=== PATIENT | female | born 1970 | race Caucasian/White ===

== ENCOUNTER 2018-02-12 10:36 | Emergency (ER) | payer BC ==
[2018-02-12 11:00] VITALS: BP 125/75
--- NOTE | 2018-02-12 11:26 | UC ---
UC General HPI - HPI Summary HPI Summary: Patient presents complaining of swelling between the fourth and fifth fingers of her right hand - she's gesturing to the dorsal surface. She notes that it is making her right pinky feel numb. She denies any history of injury and notes the discomfort is worsening. She is also complaining of pain around the base of her left thumb for about 3 months again no injury. She denies any fever or chills she denies any other joint pains and offers no other complaints. se did have carpal tunnel surgery on her right wrist but this is different. she has taken occasional motrin as needed for discomfort. tried an otc thumb spica L thumb with no relief. pcp won't tx because she thinks it may be comp related. - History of Current Complaint Hx Obtained From: Patient Hx Last Menstrual Period: 2011 Onset/Duration: Gradual Onset Pain Intensity: 8 Alleviating: nothing Associated Signs & Symptoms: Negative: Fever <Kristen Blackburn - Last Filed: 02/12/18 12:12> <Princess Todd - Last Filed: 02/12/18 12:16> - History of Current Complaint Chief Complaint: UCUpperExtremity Stated Complaint: BI LAT HAND SWELLING Time Seen by Provider: 02/12/18 11:17 - Allergy/Home Medications Allergies/Adverse Reactions: Allergies Allergy/AdvReac Type Severity Reaction Status Date / Time bee venom protein (honey bee) Allergy Severe Anaphylatic Verified 02/12/18 10:52 Shock cefazolin [From Kefzol] Allergy Unknown Hives Verified 02/12/18 10:52 Penicillins Allergy Unknown Unknown Verified 02/12/18 10:52 Reaction Details PMH/Surg Hx/FS Hx/Imm Hx GI/ History: Gastroesophageal Reflux - Surgical History Surgical History: Yes Surgery Procedure, Year, and Place: TUBAL LIGATION BEFORE -Hysterectomy, 2011, [facility]. Right Carpal Tunnel Release, 1997,. [facility] Bilateral Epicondilitis Surgeries. CHOLECYSTECTOMY - Family History Known Family History: Positive: Cardiac Disease, Diabetes, Other - parkinsons , [place] - Social History Occupation: Employed Full-time Lives: With Family Alcohol Use: Occasionally Substance Use Type: None Smoking Status (MU): Former Smoker Type: Cigarettes Amount Used/How Often: 1 PPD Length of Time of Smoking/Using Tobacco: 12 Years Have You Smoked in the Last Year: No When Did the Patient Quit Smoking/Using Tobacco: 2012 Household Exposure Type: Cigarettes - Immunization History Most Recent Influenza Vaccination: Not the Season Vaccination Up to Date: Yes <Kristen Blackburn - Last Filed: 02/12/18 12:12> Review of Systems Constitutional: Negative Skin: Negative Eyes: Negative ENT: Negative Respiratory: Negative Cardiovascular: Negative Gastrointestinal: Negative Genitourinary: Negative Motor: Negative Neurovascular: Negative Musculoskeletal: Arthralgia - hands Neurological: Negative Psychological: Negative Is Patient Immunocompromised?: No All Other Systems Reviewed And Are Negative: Yes <Kristen lBackburn - Last Filed: 02/12/18 12:12> Physical Exam Triage Information Reviewed: Yes Appearance: Well-Appearing Vital Signs: Initial Vital Signs Temp 98.8 F 02/12/18 10:53 Pulse 76 02/12/18 10:53 Resp 16 02/12/18 10:53 BP 125/75 02/12/18 10:53 Pulse Ox 99 02/12/18 10:53 Vital Signs Reviewed: Yes Eyes: Positive: Conjunctiva Clear ENT: Positive: Normal ENT inspection Neck: Positive: Supple, Nontender, No Lymphadenopathy Respiratory: Positive: Lungs clear, Normal breath sounds Cardiovascular: Positive: RRR, No Murmur Abdomen Description: Positive: Nontender, No Organomegaly, Soft Bowel Sounds: Positive: Present Musculoskeletal: Positive: Other: - Right hand exam: There is mild swelling to the base of the fourth metacarpal extending in between to the fifth metacarpal. There is no erythema or warmth. Patient notes the area is tender. The rest of the hand is unremarkable and has full sensorivascular motor function. Left hand exam: Comparison to the right hand there appears to be mild swelling at the junction of the base of the thumb and first metacarpal/thenar areas volar surface only patient notes the area is mildly tender but there is no erythema or warmth in the hand has full sensorivascular motor function. The rest of both upper extremities are unremarkable. Generalized joint exam shows no additional swelling, erythema and range of motion is intact. Neurological: Positive: Alert Psychological: Positive: Age Appropriate Behavior Skin Exam: Normal <BereKristen - Last Filed: 02/12/18 12:12> Vital Signs: Initial Vital Signs Temp 98.8 F 02/12/18 10:53 Pulse 76 02/12/18 10:53 Resp 16 02/12/18 10:53 BP 125/75 02/12/18 10:53 Pulse Ox 99 02/12/18 10:53 <Princess Todd - Last Filed: 02/12/18 12:16> Diagnostics - Radiology No standard instances Radiology Interpretation Completed By: Radiologist - Hands=mild OA(see report) <Kristen Blackburn - Last Filed: 02/12/18 12:12> Course/Dx - Differential Dx - Multi-Symptom Provider Diagnoses: arthralgia base L thumb and 4th/5th finger R hand <Kristen Blackburn - Last Filed: 02/12/18 12:12> Discharge - Sign-Out/Discharge Documenting (check all that apply): Discharge/Admit/Transfer - Billing Disposition and Condition Condition: STABLE Disposition: Home <Kristen Blackburn - Last Filed: 02/12/18 12:12> - Billing Disposition and Condition Condition: STABLE Disposition: Home <Princess Todd - Last Filed: 02/12/18 12:16> - Discharge Plan Condition: Stable Disposition: HOME Prescriptions: Naproxen [Naprosyn 500 mg tab] 500 mg PO BID #10 tablet Patient Education Materials: Osteoarthritis (ED) Referrals: Alyson Serna [Primary Care Provider] - If Needed Janene Cortez MD [Medical Doctor] - 5 Days Attestation Statement User Type: Provider - I was available for consult. This patient was seen by the GABBY. The patient was not presented to, seen by, or examined by me. -Ljj <Princess Todd - Last Filed: 02/12/18 12:16>
--- NOTE | 2018-02-12 12:05 | RAD ---
INDICATION: Chronic, bilateral hand pain COMPARISON: None TECHNIQUE: AP, lateral, and oblique views of each hand were obtained. FINDINGS: The bony structures are normally mineralized. There is no acute bony change. There is minor, symmetric, interphalangeal narrowing bilaterally. There is minor osteoarthritic change about the first carpal metacarpal reticulation on the left. No additional findings. IMPRESSION: MINOR OSTEOARTHRITIC CHANGE
== END 2018-02-12 12:20 | disposition home or self-care (01) ==
LOC: UCCORT 10:36
DX: M25.541 Pain in joints of right hand (principal); M25.542 Pain in joints of left hand; Z88.1 Allergy status to other antibiotic agents; Z88.0 Allergy status to penicillin; Z87.891 Personal history of nicotine dependence
CPT/HCPCS: 99212; G0463

== ENCOUNTER 2018-07-26 06:21 | Day surgery (SDC) | payer BC ==
[~2018-07-26 06:21] MED LIST: Buffered Lidocaine 0.9% SYRIN* 5 ML/SYR SYRINGE INTRADERM ONE; Clindamycin 900 MG/D5W BAG(*) 900 MG/50 ML BAG IVPB ONE; Lactated Ringers 1000 ML Bag* 1,000 ML IV SCH
[2018-07-26] MEDS ORDERED: Bupivacaine 0.25% SDV PF* 10 ML VIAL INJ ONE (08:11)
[2018-07-26] MEDS ORDERED: fentaNYL* 50 MCG/ML 2 ML VIAL (100 MCG VIAL) ONE ×3 (08:32→11:19)
[2018-07-26] MEDS ORDERED: Propofol* 10 MG/ML 20 ML BTL ONE (08:33)
[2018-07-26] MEDS ORDERED: Lidocaine 2% PF * 5 ML VIAL ONE (08:33)
[2018-07-26] MEDS ORDERED: Naloxone* 0.4 MG/ML 1 ML VIAL IV PRN (09:06)
[2018-07-26] MEDS ORDERED: Ketorolac INJ* 30 MG/ML 1 ML VIAL IV PRN (09:06)
[2018-07-26] MEDS ORDERED: Ondansetron INJ* 2 MG/ML VIAL IV PRN (09:06)
[2018-07-26] MEDS ORDERED: Ketorolac INJ* 30 MG/ML 1 ML VIAL ONE (10:26)
[2018-07-26] MEDS: fentaNYL* 50 MCG/ML 2 ML VIAL (100 MCG VIAL) IV PRN ×5 (10:28→11:20)
[2018-07-26] MEDS ORDERED: HYDROcodone/ACETAMIN 5-325 MG* 1 TAB ONE ×2 (10:53→10:54)
[2018-07-26 13:33] VITALS: BP 143/92
--- NOTE | 2018-07-26 23:05 | OP ---
DATE OF OPERATION: 07/26/18 - [facility] DATE OF : 66 SURGEON: Jeancarlos Hoffman MD [employer] ARCHITECT: URSULA Pineda. An assistant casino shift manager was needed for the procedure to aid in positioning of the arm and retraction. ANESTHESIOLOGIST: Dr. Villalpando. ANESTHESIA: General. PRE-OP DIAGNOSIS: Left thumb carpometacarpal degenerative joint disease. POST-OP DIAGNOSIS: Left thumb carpometacarpal degenerative joint disease. OPERATIVE PROCEDURE: 1. Left thumb carpometacarpal arthroplasty. 2. Distally based split flexor carpi radialis tendon transfer for thumb suspension and tendon interposition. INDICATIONS: Magali has very symptomatic carpometacarpal DJD. We had talked about risks and benefits, she wanted to proceed with surgery. ESTIMATED BLOOD LOSS: 2 mL. COMPLICATIONS: None. FINDINGS: See above and elbow. DESCRIPTION OF PROCEDURE: Magali was seen in the preoperative holding area. The correct side, site and procedure were identified. We came back to the operating room. The arm was prepped and draped in the usual fashion and time- out was performed. The arm was exsanguinated with the Esmarch and the tourniquet was inflated to 250 mmHg. I began by making a 2 to 3 cm longitudinal incision over the dorsal radial thumb base. Dissection was carried down longitudinally to preserve the traversing sensory nerves. The radial artery was mobilized and retracted out of the way. A small acute dialysis nurse was cauterized. Subperiosteal and capsular flaps were raised using the knife to expose the dorsal surface of the trapezium including the scaphoid trapezoid, the carpometacarpal and the trapezial trapezoid joint. The rongeur was then used to excise the trapezium in piecemeal fashion completely. Once it was completely excised, the scaphoid trapezoid joint was examined, this looked good. I then used sequentially larger drill bits to create a bone tunnel from the dorsal radial aspect of the thumb metacarpal base, actually not the volar ulnar articular surface. Everything was irrigated out. We turned our attention to the tendon transfer. I made a 1-cm incision just proximal to the wrist flexion crease. The FCR tendon sheath was released. The tendon was brought out of the wound and split longitudinally with a 15 blade and a 26-gauge wire was passed between the split. I then came about 8 cm proximal to that and made a second 1 to 2 cm transverse incision. The FCR tendon sheath was released under the skin along the entirety of the tendon. A Daphne clamp was then passed from the proximal wound into the distal wound and then the wire was pulled back up into the proximal wound releasing half the tendon at the musculotendinous junction. The tendon tail was sutured with a little 3-0 Ethibond suture on the end to keep the tendon from fraying. I then used two 26-gauge wires to pass the free end of the tendon down into the thumb base wound. The tendon was split all the way down to its insertion at the base of the second metacarpal. The free end was passed through the bone tunnel back around the intact limb and then appropriate tension was set as the tendon transfer was secured with three [id number] 3- 0 Ethibond sutures. The first sewed all three limbs to the tendon transfer together, the last two sewed intact limb to intact limb. The remainder of the tendon was rolled up as a ball and placed as an interposition where the trapezium had been excised. Everything was again irrigated out. The capsule was closed with 3-0 Ethibond suture. The skin was closed with 4-0 nylon suture. Marcaine was infiltrated. The wounds were dressed. A thumb spica splint was applied with the IP joint free. She was then taken to the recovery room in stable condition. [id number]/[facility] #: [id number] SHAYLEE
== END 2018-07-26 13:39 | disposition home or self-care (01) ==
LOC: OR 06:21
PROVIDERS: ATTEND Orthopaedic Surgery Hand Surgery
DX: M18.12 Unilateral primary osteoarthritis of first carpometacarpal joint, left hand (principal); E78.5 Hyperlipidemia, unspecified; K21.9 Gastro-esophageal reflux disease without esophagitis
CPT/HCPCS: 88304; 88311; J1885; J2704; J3010; J3490

== ENCOUNTER 2019-05-16 08:47 | Emergency (ER) | payer BC ==
[2019-05-16 09:21] VITALS: BP 127/75
--- NOTE | 2019-05-16 10:20 | UC ---
Lower Extremity/Ankle HPI - HPI Summary HPI Summary: 49-year-old female comes in with a chief complaint of left foot pain started 3 days ago while she was walking. No known specific trauma. Pain is in the distal foot at the level of the first metatarsal mid shaft. Pain is better with rest worse with weightbearing. No history of gout. - History of Current Complaint Chief Complaint: UCLowerExtremity Stated Complaint: L FOOT COMP Time Seen by Provider: 05/16/19 09:25 Hx Last Menstrual Period: 2011 Pain Intensity: 8 - Allergies/Home Medications Allergies/Adverse Reactions: Allergies Allergy/AdvReac Type Severity Reaction Status Date / Time bee venom protein (honey bee) Allergy Severe Anaphylatic Verified 05/16/19 09:14 Shock cefazolin [From Kefzol] Allergy Severe Hives Verified 05/16/19 09:14 Penicillins Allergy Unknown Unknown Verified 05/16/19 09:14 Reaction Details Home Medications: Home Medications Ibuprofen TAB* [Advil TAB*] 600 mg PO Q6H PRN 05/16/19 [History Confirmed ] PMH/Surg Hx/FS Hx/Imm Hx Previously Healthy: Yes - Surgical History Surgical History: Yes Surgery Procedure, Year, and Place: Cholecystectomy, 2013, [place]; Hysterectomy, 2011, [place]; Left Epicondial, ~2007, [place]; Right Carpal Tunnel Release and Right Epicondial, 1997, [place]; Tubal Ligation, ~1993, [place] - Family History Known Family History: Positive: Unknown, Cardiac Disease, Diabetes, Other - parkinsons , [place] - Social History Alcohol Use: Occasionally Substance Use Type: None Smoking Status (MU): Former Smoker Type: Cigarettes Amount Used/How Often: 1 PPD Length of Time of Smoking/Using Tobacco: 1 PPD x 12 Years Have You Smoked in the Last Year: No When Did the Patient Quit Smoking/Using Tobacco: 1993 Household Exposure Type: Cigarettes - Immunization History Most Recent Influenza Vaccination: Not the 2015/2015 Season Vaccination Up to Date: Yes Review of Systems All Other Systems Reviewed And Are Negative: Yes Constitutional: Positive: Negative Skin: Positive: Negative Eyes: Positive: Negative ENT: Positive: Negative Respiratory: Positive: Negative Cardiovascular: Positive: Negative Gastrointestinal: Positive: Negative Motor: Positive: Negative Neurovascular: Positive: Negative Musculoskeletal: Positive: Other: - SEE HPI Neurological: Positive: Negative Psychological: Positive: Negative Is Patient Immunocompromised?: No Physical Exam Triage Information Reviewed: Yes Appearance: Well-Appearing, No Pain Distress, Well-Nourished Vital Signs: Initial Vital Signs Temp 98.6 F 05/16/19 09:11 Pulse 106 05/16/19 09:11 Resp 18 05/16/19 09:11 BP 127/75 05/16/19 09:11 Pulse Ox 99 05/16/19 09:11 Vital Signs Reviewed: Yes Eye Exam: Normal Eyes: Positive: Conjunctiva Clear Neck: Positive: Supple Respiratory: Positive: No respiratory distress Musculoskeletal: Positive: Strength Intact, ROM Intact, Other: - Patient is tender to palpation in the left foot mid shaft of the first metatarsal. Minimal warmth to the area no erythema. The first MTP is nontender to palpation. And on clinical exam at this time it does not appear to be gout. Normal capillary refill normal sensation. Normal dorsalis pedis pulse. Toe has full range of motion which does elicit. Pain ankle is nontender Achilles tendon is intact ankle has full range of motion. No obvious skin break. Neurological: Positive: Alert Psychological: Positive: Age Appropriate Behavior Skin Exam: Normal Lower Extremity Course/Dx - Course Course Of Treatment: Cdl Driver: Dain Espinal Daniel ([id number]) Log Roller: ENDY ( ENDY) Report Date: 05/16/2019 09:25:00 Report Status: Final ====== Start of Report Content Patient Name: ERIC PHOENIX Medical Record#: [id number] Ordering Physician: Sidney Peter MD Acct.#: [id number] : Age: 49 Sex: F Location: [facility] Exam Date: 05/16/19924 ADM Status: REG ER Order Information: FOOT LEFT 3+ VWS Accession Number: [id number] CPT: 56535 HISTORY: PAIN . First metatarsal pain COMPARISONS: None relevant available at the time of dictation. VIEWS: 3, Frontal, lateral, and oblique views of the left foot FINDINGS: BONE DENSITY: Normal. BONES: There is no displaced fracture. There is a small plantar calcaneal enthesophyte. JOINTS: There is no arthropathy. ALIGNMENT: There is no dislocation. SOFT TISSUES: Unremarkable. OTHER FINDINGS: None. IMPRESSION: NO ACUTE OSSEOUS INJURY. IF SYMPTOMS PERSIST, RECOMMEND REPEAT IMAGING. <Electronically signed by Dain Espinal MD in OV > 05/16/19948 Dictated By: Dain Espinal MD Dictated Date/Time: 947 Transcribed Date/Time: 05/16/19947 Copy to: CC:Juan Manuel BLACKWOODP; Sidney Peter MD Imaging - [facility] Imaging - [place] [facility] [address] [address] ph ([phone] ph ) ph ([phone]) End of Report Content I discussed the x-rays with the patient. It appears to be a soft tissue inflammatory process at this time. Patient was placed in a cam boot and clinic patient neurovascularly intact after placement of a cam boot I nursing. Plan is anti-inflammatories eyes rest and follow-up with either sports medicine or orthopedics. - Differential Dx/Diagnosis Provider Diagnosis: Left foot pain Discharge ED - Sign-Out/Discharge Documenting (check all that apply): Patient Departure All imaging exams completed and their final reports reviewed: Yes - Discharge Plan Condition: Stable Disposition: HOME Patient Education Materials: Foot Sprain (ED) Forms: *Work Release Referrals: Alyson Serna [Primary Care Provider] - [facility] [Provider Group] Rahat Retana MD [Medical Doctor] - Additional Instructions: FOLLOW UP WITH SPORTS MEDICINE OR ORTHOPEDICS. GET RECHECKED SOONER IF WORSE OR ANY QUESTIONS OR CONCERNS. - Billing Disposition and Condition Condition: STABLE Disposition: Home
== END 2019-05-16 10:29 | disposition home or self-care (01) ==
LOC: UCCORT 08:47
DX: M79.672 Pain in left foot (principal); Z88.0 Allergy status to penicillin; Z88.1 Allergy status to other antibiotic agents; Z87.891 Personal history of nicotine dependence
CPT/HCPCS: 99212; G0463